=== PATIENT | female | born 1930 | race Caucasian/White ===

== ENCOUNTER → 2016-06-21 | Outpatient (REF) ==
[2016-06-21 12:05] LABS: MEAN CORPUSCULAR HEMOGLOBIN 29.9 PG (26.0-34.0); MEAN CORPUSCULAR HGB CONC 33.8 g/dL (31.0-37.0); MEAN PLATELET VOLUME 9.7 FL (6.0-9.5); WHITE BLOOD COUNT 9.07 10^3uL (4.0-11.0)
[2016-06-21 12:16] LABS: ALBUMIN 3.9 g/dL (3.4-5.0); ANION GAP 13.7 MEQ/L (3-15); CALCULATED IONIZED CALCIUM 4.7 mg/dL (3.8-4.6); TOTAL PROTEIN 7.2 g/dL (6.4-8.5)
== END ==
LOC: CLAB.BLUES 11:20
PROVIDERS: ATTEND Family Medicine
DX: G31.84 Mild cognitive impairment of uncertain or unknown etiology (principal); E78.00 Pure hypercholesterolemia, unspecified; E03.9 Hypothyroidism, unspecified
CPT/HCPCS: 80053; 80061; 84443; 85027